=== PATIENT | male | born 1960 | race Caucasian/White ===

== ENCOUNTER 2019-11-04 21:47 | Emergency (ER) | payer MEDICAID ==
[~2019-11-04] VITALS: Ht 167.6 cm; Wt 85.9 kg
[~2019-11-04 21:47] MED LIST: HYDR-2924 PO; HYDR50CA9 PO; OLAN10TA3 PO; TRAZ150 PO
[2019-11-04 22:03] VITALS: BP 117/74
[2019-11-04] MEDS ORDERED: NAPR-1025 PO (22:17)
[2019-11-04] MEDS ORDERED: ASPI81TA40 PO (22:17)
== END 2019-11-04 23:04 | disposition left against medical advice (07) ==
LOC: EMS 21:49
DX: R19.7 Diarrhea, unspecified (principal); Z53.21 Procedure and treatment not carried out due to patient leaving prior to being seen by health care provider